=== PATIENT | male | born 1960 | race Caucasian/White ===

== ENCOUNTER 2023-12-06 21:03 | Emergency (ER) | payer BC, SELFPAY ==
[2023-12-06 21:12] VITALS: BP 198/97
--- NOTE | 2023-12-07 00:09 | ED.GENMED ---
History of Present Illness
General
Chief Complaint: Musculo-Skeletal Complaint
Source: patient
Exam Limitations: none
Time Seen by Provider: 12/06/23 22:54
Travel History
Have you had any contact with someone who has COVID-19?: No
Do you have any symptoms of coronavirus? Fever > 100 degrees, chills, cough, shortness of breath, sore throat, loss of taste or smell, muscle aches, or headache?: No
History of Present Illness
History of Present Illness:
This is a 63 year old male that comes in with c/o left hip pain. 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 States that the pain goes around to the low back and is on the top of the
hip. Denies any falls or injury. Denies any fever, chills, chest pain, SOB, abd pain, nausea, vomiting, diarrhea, headache, dizziness, urinary burning.
Past History
Past History
ED Past Medical History: GERD, NIDDM and Other (hernia's)
ED Past Surgical History: Appendectomy, Tonsilectomy (and adenoids) and Other (Sinus surgery)
Social History
Tobacco: Former smoker
Alcohol: Occasional
Personal:
Living: with family
Employment: Employed
Review of Systems
Review of Systems
All Other Systems: ROS reviewed and negative except as documented in HPI and ROS
Constitutional: Reports no symptoms; Denies fever or chills
EENT: Reports no symptoms
Respiratory: Reports no symptoms; Denies cough or trouble breathing
Cardiac: Reports no symptoms; Denies chest pain
ABD/GI: Reports no symptoms; Denies abdominal pain, nausea, vomiting or diarrhea
: Reports no symptoms; Denies dysuria, frequency or urgency
Musculoskeletal: Reports joint pain (Left hip pain)
Skin: Reports no symptoms
Neurological: Reports no symptoms; Denies dizzy or headache
Psychiatric: Reports no symptoms
Phy Exam
General Physical Exam
General Presentation: well appearing and no apparent distress
General age: appears stated age
General Skin: warm and dry
General Habitus: normal
General Mental: alert
General Hydration: appears well hydrated
ENT Exam
ENT Exam: TM's normal, pharynx normal and neck supple
Eye Exam
Eye Exam: EOMI
Cardiovascular Exam
Cardiovascular Exam: regular rate/rhythm, no murmur and normal peripheral pulses
Pulmonary Exam
Pulmonary Exam: lungs clear, no respiratory distress, no rales, chest non tender, no crackles, no rhonchi, no wheezing and no cough
Gastrointestinal Exam
Gastrointestinal Exam: normal bowel sounds, non tender, soft, no organomegaly, no pulsatile mass, non distended and other (Obese)
Musculoskeletal Exam
Musculoskeletal Exam: full ROM, no edema and other (Tenderness with palpation against the hip socket. patient able to bend leg)
Skin Exam
Skin Exam: normal color, warm/dry, no rash and no petechia
Psychiatric Exam
Psychiatric Exam: normal mood/affect
Course
Orders/Labs/Results
Orders:
Orders
12/06/23 21:10
Hip, Left 2-3 Views [CR Hip - LT w/wo Pel 2-3 Vw*] Urgent
Comment:
Reason For Exam: pain
Include a pelvis x-ray?: Yes
Vital Signs
Initial and Last Documented VS:
Initial Vital Signs
Temp Pulse Resp BP Pulse Ox
98.7 F 101 17 198/97 98
12/06/23 21:12 12/06/23 21:12 12/06/23 21:12 12/06/23 21:12 12/06/23 21:12
Last Documented Vital Signs
Temp Pulse Resp BP Pulse Ox
98.7 F 101 17 198/97 98
12/06/23 21:12 12/06/23 21:12 12/06/23 21:12 12/06/23 21:12 12/06/23 21:12
MDM/Problems Addressed
Differential Diagnosis Includes:
Degenerative changes left hip
MDM/Problems Addressed:
This is a 63 year old male that comes in with c/o left hip pain. States that this has been going on for the past 2 months.
Will get X-ray.
Back into see patient. Explained that the X-ray was negative for any fractures. However, there looks to be degenerative changes. Will have patient follow up with the podiatric foot and ankle specialist for further evaluation.Patient can use Ice to help with pain
and use Tylenol or Ibuprofen for pain.
Chronic conditions affecting care:
Obese
Acute Exacerbation and/or Progression of Chronic Illness:
NA
*Radiology
Radiology exam reviewed: preliminary read by ED provider (Left hip- Degenerative changes, Negative for fractures. )
*Pulse Oximetry
Patient hypoxic: no
*EKG
Interpreted by ED Provider?: NA
Rate: EKG- N/A
*Zinc Miner Blasting Interpretation
Rate: Zinc Miner Blasting- N/A
*Critical Care Note
Total Time (30-74mins, 75-104mins- exclusive of procedures): Not Applicable
ED Attending Note
-
Portions of this chart may have been created with voice recognition software.� Occasional wrong word or��sound alike� substitutions may have occurred due to the inherent limitations of voice recognition software.
Discharge Plan
Departure
Patient Disposition: Home (Routine Discharge)
Date of Disposition: 12/07/23
Time of Disposition: 00:25
Patient with high blood pressure during this ER visit?: Yes
Condition: Good
Covid-19: Not Applicable
Discharge Problem:
Hip pain, left
Instructions: Hip Pain (DC), BLOOD PRESSURE
Prescriptions:
No Action
gabapentin 300 mg capsule
300 mg PO BID Qty: 60 0RF
metformin 500 mg tablet
500 mg PO BID Qty: 60 0RF
lisinopril 10 mg tablet
10 mg PO DAILY Qty: 30 0RF
Referrals:
Isra Hickman MD [Active] - Follow up in 2-3 days
Andrae Deras DO [Family Provider] -
Activity Restrictions/Additional Instructions:
As discussed, your X-rays are negative for any fractures. There are degenerative changes in the hip. Please follow up with the podiatric foot and ankle specialist for further evaluation. You may use Ice to help with pain and Tylenol or Ibuprofen for pain. IF YOU
HAVE ANY OTHER CONCERNS PLEASE RETURN TO THE EMERGENCY ROOM.
Interventions
Interventions:
*Risk Screen - Suicide Last Done: 12/06/23 21:12
*General Assessment Last Done: 12/06/23 21:12
*Neglect/Abuse Screening Last Done: 12/06/23 21:12
ED-Musculoskeletal Assessment Last Done: 12/06/23 23:16
[2023-12-07 00:54] VITALS: BP 139/80
== END 2023-12-07 00:56 | disposition home or self-care (01) ==
LOC: EMR 21:03
PROVIDERS: EMERGENCY PHYSICIAN Emergency Medicine; FAMILY PHYSICIAN Family Medicine
DX: M25.552 Pain in left hip (principal); M54.50 Low back pain, unspecified; R03.0 Elevated blood-pressure reading, without diagnosis of hypertension; E66.9 Obesity, unspecified; E11.9 Type 2 diabetes mellitus without complications; K21.9 Gastro-esophageal reflux disease without esophagitis; Z79.84 Long term (current) use of oral hypoglycemic drugs; Z87.891 Personal history of nicotine dependence; Z88.1 Allergy status to other antibiotic agents
CPT/HCPCS: 99283; 73502

== ENCOUNTER 2025-08-27 02:46 | Inpatient (IN) | payer BC, SELFPAY ==
[2025-08-26 21:13] LABS: ALT (SGPT) 26 U/L (0-50); AST (SGOT) 19 U/L (17-59); Albumin 3.9 g/dl (3.5-5.0); Alkaline Phosphatase 125 U/L (38-126); Blood Urea Nitrogen 13 mg/dl (9-20); COVID-19 Antigen Negative (Negative); Calcium 8.3 mg/dl (8.4-10.2); Carbon Dioxide 30 mmol/L (22-30); Chloride 93 mmol/L (98-107); Potassium 4.4 mmol/L (3.5-5.1); Sodium 129 mmol/L (135-145); Total Protein 7.2 g/dl (6.3-8.2); eGFR > 60.00
[2025-08-26 21:14] LABS: Glucose 409 mg/dl (70-99)
[2025-08-26 22:07] VITALS: BP 129/68
[2025-08-26 22:08] VITALS: BMI 38.9
[2025-08-26 22:18] LABS: Hematocrit 39.1 % (39.0-52.0); Hemoglobin 13.3 g/dL (13.0-18.0); Mean Corp Hgb Conc. 34.0 g/dL (33.0-37.0); Mean Corpuscular Volume 80.5 fL (80.0-94.0); Nucleated Red Blood Cells % 0 % (-); Platelet Count 235 10^3/uL (130-400); Red Cell Dist. Width 13.2 % (11.5-14.5)
--- NOTE | 2025-08-26 22:39 | ED.GENMED ---
History of Present Illness
<Laila Lubin PA-C - Last Filed: 08/27/25 10:08>
General
Chief Complaint: Cough
Source: patient
Exam Limitations: none
Time Seen by Provider: 08/26/25 22:20
History of Present Illness
History of Present Illness:
65yoM with a history of type 2 diabetes not on medications (patient prefers to treat himself naturally), hypertension, obesity, and GERD presenting for evaluation of cough. Patient has been having issues with belching for the past year or so. The
symptoms worsened today and he felt like he was choking. He also started experiencing chills and decided to come to the ED. He reports some abdominal discomfort which he believes is from belching. He denies any vomiting or diarrhea. He is
febrile to 101.5 on arrival. No known sick contacts.
Past History
<Laila Lubin PA-C - Last Filed: 08/27/25 10:08>
Past History
ED Past Medical History: GERD, NIDDM and Other (hernia's)
ED Past Surgical History: Appendectomy, Tonsilectomy (and adenoids) and Other (Sinus surgery)
Social History
Tobacco: Former smoker
Alcohol: Occasional
Personal:
Living: with family
Employment: Employed
Phy Exam
<Laila Lubin PA-C - Last Filed: 08/27/25 10:08>
Physical Exam
Physical Exam:
Hiccuping/belching during exam
General Physical Exam
General Presentation: well appearing and no apparent distress
General Skin: warm and dry
General Habitus: normal and obese
General Mental: alert
Cardiovascular Exam
Cardiovascular Exam: regular rate/rhythm
Pulmonary Exam
Pulmonary Exam: no respiratory distress, no rales, no crackles, no rhonchi, no stridor, no wheezing and decreased breath sounds
Gastrointestinal Exam
Gastrointestinal Exam: non tender, soft and non distended
Neurological Exam
Neurological Exam: alert
Sejal Coma Scale
Eye Opening: Spontaneous
Verbal Response: Oriented
Motor Response: Obeys Commands
GCS Total Score: 15
Skin Exam
Skin Exam: normal color and warm/dry
Psychiatric Exam
Psychiatric Exam: normal mood/affect
Sepsis
<Laila Lubin PA-C - Last Filed: 08/27/25 10:08>
Sepsis Screening
Sepsis Assessment: Sepsis
Sepsis Screen
Sepsis Screen: Sepsis
Date: 08/27/25
Time: 10:06
Course
<Laila Lubin PA-C - Last Filed: 08/27/25 10:08>
Orders/Labs/Results
Orders:
Orders
08/26/25 20:27
EKG [Electrocardiogram (*1)] Urgent
Reason for Study: Tachycardia
EKG- Treatment ONCE
08/26/25 20:49
CMP [Comprehensive Metabolic Panel] Urgent
COVID-19 Antigen Urgent
Source: Nasal Swab
Influenza A+B Rapid Molecular Urgent
[facility] Source: Nasal Swab
Specimen Description:
08/26/25 22:06
CBC/With Diff [Complete Blood Count/With Diff] Urgent
Lactic Acid Q4H
Comment: ON ICE, CANCEL 2ND ORDER IF FIRST LACTIC ACID LEVEL <2
Blood Culture Q20M
[facility] Source: Blood/Venous
Specimen Description:
Comment: Urgent from separate sites. If patient screens positive for possible sepsis
Blood Culture Q20M
[facility] Source: Blood/Venous
Specimen Description:
Comment: Urgent from separate sites. If patient screens positive for possible sepsis
08/26/25 22:33
CT Abd/pelvis W Iv Cont Urgent
Comment:
Reason For Exam: abd pain, belching, fever
0.9% Sodium Chloride 1000 ml [Nss] 1,000 ml IV BOLUS
08/26/25 22:51
CT Chest W/o Iv Contrast Urgent
Comment:
Reason For Exam: Cough, fever
08/26/25 23:08
Urinalysis Reflex To Culture Urgent
Date Specimen was Collected: 08/26/25
Time Specimen was Collected: 20:28
Urine Microscopic Reflex Cult Urgent
08/26/25 23:54
LevoFLOXacin 750 MG/150 ML [Levaquin] 750 mg in 150 ml IV NOW
08/27/25 02:08
Bedside Glucose Monitoring-ONCE As Directed
08/27/25 02:09
Admit/Transfer Patient As Directed
Co-Sign Provider:
Level of Care: Inpatient admission
Assign to:: Medical/Surgical
Physician / Group: [facility]
Diagnosis: RLL Pneumonia
Reason for Hospitalization: Pneumonia
Expected length of stay greater than two midnights?: Yes
ELOS- Estimated Length of Stay in days: 2
I certify the patient meets the requirements for IP care: Yes
Code Status As Directed
Resuscitation Status: Full Code
PRN Pain Medication Management As Directed
May give lesser potent ordered pain med per pt: Yes
preference::
Protocol:: Medication orders for pain may be administered in a
manner that supports deferring to patient preference
when the pt is:
- Requesting an ordered lesser potent pain medication.
Least to most potent pain medications are defined
as: acetaminophen < NSAID < tramadol < opioids
(morphine, oxycodone, hydromorphone).
- Requesting a lesser dose of the same medication IF
ORDERED.
- Requesting a less intrusive route of administration
if both routes are prescribed by the provider (PO <
IV).
08/27/25 02:50
0.9% Sodium Chloride 1000 ml [Nss] 1,000 ml IV 125 mls/hr
Acetaminophen [Tylenol] 650 mg PO Q4HPRN PRN
Dextrose 50%-Water [Dextrose 50% Syringe] 12.5 grams IV [id number] PRN
Glucagon [GlucaGen] 1 mg IM PRN PRN
Ipratropium/Albuterol Sulfate [Duoneb] 3 ml INH R Q4HPRN PRN
Magnesium Hydroxide [Milk of Magnesia] 30 ml PO Q4HPRN PRN
Metoclopramide [Reglan] 10 mg IV Q6HPRN PRN
08/27/25 02:50
Legionella Urinary Antigen Routine
[facility] Source: Urine
Specimen Description:
Respiratory Culture/Gram Stain Urgent
[facility] Source: Sputum
Specimen Description:
Strep pneumoniae Antigen Routine
[facility] Source: Urine
Specimen Description:
Activity As Directed
Activity Level: Out of Bed-Early Mobility
Bedside Glucose Monitoring As Directed
Frequency: AC&HS
Additional Instructions:: Change to q6h if pt on TPN, tube feeding or not eating
Intake/ Output As Directed
Frequency: Per unit guidelines
Vital Signs As Directed
Frequency: Per unit guidelines
Weight As Directed
Frequency: Once
Comment: on admission
Pulse Ox/cont/shift [RESP] Routine
Quantity: 1
Special Instructions: notify provider if SPO2 < 91%
Rx Incentive Spirometry [RESP] Routine
Frequency: q1h while awake
DX Deep Vein Thrombosis Video Routine
08/27/25 05:19
Basic Metabolic Panel IN AM
Complete Blood Count/No Diff IN AM
Glycohemoglobin (HgbA1c) IN AM
08/27/25 Breakfast
1800 calorie (15 carb) Diabetic
At Your Request: Full Participation
08/27/25 07:30
Insulin Aspart Corrective Mod [Novolog Flexpen-Moderate Resistance] See Protocol SC AC
08/27/25 08:00
Gabapentin [Neurontin] 300 mg PO BID
GlipiZIDE [Glucotrol] 2.5 mg PO BID@0800,1700
Guaifenesin [Mucinex] 600 mg PO Q12
Pantoprazole [Protonix] 40 mg PO DAILY
Sitagliptin Phosphate [Januvia] 50 mg PO DAILY
08/27/25 18:00
Enoxaparin Sodium [Lovenox] 40 mg SC QPM
08/27/25 23:30
LevoFLOXacin 750 MG/150 ML [Levaquin] 750 mg in 150 ml IV Q24H
Abnormal Lab Results
08/26/25 08/26/25 08/26/25
20:49 22:06 23:08
WBC 16.5 H 10^3/uL
(4.8-10.8)
MPV 11.2 H fL
(7.4-10.4)
Abs Immat Gran (auto) 0.1 H 10^3/uL
(0-0.05)
Absolute Neuts (auto) 13.2 H 10^3/uL
(1.4-6.5)
Absolute Monos (auto) 1.0 H 10^3/uL
(0.1-0.6)
Immature Gran % 0.8 H %
(0-0.5)
Neutrophils % 79.6 H %
(42.2-75.2)
Lymphocytes % 12.2 L %
(20.5-51.1)
Sodium 129 L mmol/L
(135-145)
Chloride 93 L mmol/L
(98-107)
Glucose 409 H mg/dl
(70-99)
Calcium 8.3 L mg/dl
(8.4-10.2)
Total Bilirubin 1.8 H mg/dl
(0.2-1.3)
Urine Ketones 2+ A
(Negative)
Urine Bacteria (Reflex) Few A
(Negative)
Urine Glucose 4+ A
(Negative)
Urine Albumin (Reflex) 2+ A
(Neg - Trace)
POC Glucose
08/27/25
02:12
WBC
MPV
Abs Immat Gran (auto)
Absolute Neuts (auto)
Absolute Monos (auto)
Immature Gran %
Neutrophils %
Lymphocytes %
Sodium
Chloride
Glucose
Calcium
Total Bilirubin
Urine Ketones
Urine Bacteria (Reflex)
Urine Glucose
Urine Albumin (Reflex)
POC Glucose 338 H mg/dl
(70-99)
08/26/25 22:06
08/26/25 20:49
Vital Signs
Initial and Last Documented VS:
Initial Vital Signs
Temp Pulse Resp Pulse Ox
101.5 F H 102 20 94
08/26/25 20:29 08/26/25 20:29 08/26/25 20:29 08/26/25 20:29
Last Documented Vital Signs
Temp Pulse Resp BP Pulse Ox
99.8 F 90 18 146/64 97
08/27/25 08:02 08/27/25 05:17 08/27/25 05:17 08/27/25 08:02 08/27/25 07:53
<Shelton Maki, DO - Last Filed: 08/27/25 00:12>
Orders/Labs/Results
Orders:
Orders
08/26/25 20:27
EKG [Electrocardiogram (*1)] Urgent
Reason for Study: Tachycardia
EKG- Treatment ONCE
08/26/25 20:49
CMP [Comprehensive Metabolic Panel] Urgent
COVID-19 Antigen Urgent
Source: Nasal Swab
Influenza A+B Rapid Molecular Urgent
[facility] Source: Nasal Swab
Specimen Description:
08/26/25 22:06
CBC/With Diff [Complete Blood Count/With Diff] Urgent
Lactic Acid Q4H
Comment: ON ICE, CANCEL 2ND ORDER IF FIRST LACTIC ACID LEVEL <2
Blood Culture Q20M
[facility] Source: Blood/Venous
Specimen Description:
Comment: Urgent from separate sites. If patient screens positive for possible sepsis
Blood Culture Q20M
[facility] Source: Blood/Venous
Specimen Description:
Comment: Urgent from separate sites. If patient screens positive for possible sepsis
08/26/25 22:33
CT Abd/pelvis W Iv Cont Urgent
Comment:
Reason For Exam: abd pain, belching, fever
0.9% Sodium Chloride 1000 ml [Nss] 1,000 ml IV BOLUS
08/26/25 22:51
CT Chest W/o Iv Contrast Urgent
Comment:
Reason For Exam: Cough, fever
08/26/25 23:08
Urinalysis Reflex To Culture Urgent
Date Specimen was Collected: 08/26/25
Time Specimen was Collected: 20:28
Urine Microscopic Reflex Cult Urgent
08/26/25 23:54
LevoFLOXacin 750 MG/150 ML [Levaquin] 750 mg in 150 ml IV NOW
08/27/25 02:08
Bedside Glucose Monitoring-ONCE As Directed
08/27/25 02:09
Admit/Transfer Patient As Directed
Co-Sign Provider:
Level of Care: Inpatient admission
Assign to:: Medical/Surgical
Physician / Group: [facility]
Diagnosis: RLL Pneumonia
Reason for Hospitalization: Pneumonia
Expected length of stay greater than two midnights?: Yes
ELOS- Estimated Length of Stay in days: 2
I certify the patient meets the requirements for IP care: Yes
Code Status As Directed
Resuscitation Status: Full Code
PRN Pain Medication Management As Directed
May give lesser potent ordered pain med per pt: Yes
preference::
Protocol:: Medication orders for pain may be administered in a
manner that supports deferring to patient preference
when the pt is:
- Requesting an ordered lesser potent pain medication.
Least to most potent pain medications are defined
as: acetaminophen < NSAID < tramadol < opioids
(morphine, oxycodone, hydromorphone).
- Requesting a lesser dose of the same medication IF
ORDERED.
- Requesting a less intrusive route of administration
if both routes are prescribed by the provider (PO <
IV).
08/27/25 02:50
0.9% Sodium Chloride 1000 ml [Nss] 1,000 ml IV 125 mls/hr
Acetaminophen [Tylenol] 650 mg PO Q4HPRN PRN
Dextrose 50%-Water [Dextrose 50% Syringe] 12.5 grams IV [id number] PRN
Glucagon [GlucaGen] 1 mg IM PRN PRN
Ipratropium/Albuterol Sulfate [Duoneb] 3 ml INH R Q4HPRN PRN
Magnesium Hydroxide [Milk of Magnesia] 30 ml PO Q4HPRN PRN
Metoclopramide [Reglan] 10 mg IV Q6HPRN PRN
08/27/25 02:50
Legionella Urinary Antigen Routine
[facility] Source: Urine
Specimen Description:
Respiratory Culture/Gram Stain Urgent
[facility] Source: Sputum
Specimen Description:
Strep pneumoniae Antigen Routine
[facility] Source: Urine
Specimen Description:
Activity As Directed
Activity Level: Out of Bed-Early Mobility
Bedside Glucose Monitoring As Directed
Frequency: AC&HS
Additional Instructions:: Change to q6h if pt on TPN, tube feeding or not eating
Intake/ Output As Directed
Frequency: Per unit guidelines
Vital Signs As Directed
Frequency: Per unit guidelines
Weight As Directed
Frequency: Once
Comment: on admission
Pulse Ox/cont/shift [RESP] Routine
Quantity: 1
Special Instructions: notify provider if SPO2 < 91%
Rx Incentive Spirometry [RESP] Routine
Frequency: q1h while awake
DX Deep Vein Thrombosis Video Routine
08/27/25 05:19
Basic Metabolic Panel IN AM
Complete Blood Count/No Diff IN AM
Glycohemoglobin (HgbA1c) IN AM
08/27/25 Breakfast
1800 calorie (15 carb) Diabetic
At Your Request: Full Participation
08/27/25 07:30
Insulin Aspart Corrective Mod [Novolog Flexpen-Moderate Resistance] See Protocol SC AC
08/27/25 08:00
Gabapentin [Neurontin] 300 mg PO BID
GlipiZIDE [Glucotrol] 2.5 mg PO BID@0800,1700
Guaifenesin [Mucinex] 600 mg PO Q12
Pantoprazole [Protonix] 40 mg PO DAILY
Sitagliptin Phosphate [Januvia] 50 mg PO DAILY
08/27/25 18:00
Enoxaparin Sodium [Lovenox] 40 mg SC QPM
08/27/25 23:30
LevoFLOXacin 750 MG/150 ML [Levaquin] 750 mg in 150 ml IV Q24H
Abnormal Lab Results
08/26/25 08/26/25 08/26/25
20:49 22:06 23:08
WBC 16.5 H 10^3/uL
(4.8-10.8)
MPV 11.2 H fL
(7.4-10.4)
Abs Immat Gran (auto) 0.1 H 10^3/uL
(0-0.05)
Absolute Neuts (auto) 13.2 H 10^3/uL
(1.4-6.5)
Absolute Monos (auto) 1.0 H 10^3/uL
(0.1-0.6)
Immature Gran % 0.8 H %
(0-0.5)
Neutrophils % 79.6 H %
(42.2-75.2)
Lymphocytes % 12.2 L %
(20.5-51.1)
Sodium 129 L mmol/L
(135-145)
Chloride 93 L mmol/L
(98-107)
Glucose 409 H mg/dl
(70-99)
Calcium 8.3 L mg/dl
(8.4-10.2)
Total Bilirubin 1.8 H mg/dl
(0.2-1.3)
Urine Ketones 2+ A
(Negative)
Urine Bacteria (Reflex) Few A
(Negative)
Urine Glucose 4+ A
(Negative)
Urine Albumin (Reflex) 2+ A
(Neg - Trace)
POC Glucose
08/27/25
02:12
WBC
MPV
Abs Immat Gran (auto)
Absolute Neuts (auto)
Absolute Monos (auto)
Immature Gran %
Neutrophils %
Lymphocytes %
Sodium
Chloride
Glucose
Calcium
Total Bilirubin
Urine Ketones
Urine Bacteria (Reflex)
Urine Glucose
Urine Albumin (Reflex)
POC Glucose 338 H mg/dl
(70-99)
08/26/25 22:06
08/26/25 20:49
Vital Signs
Initial and Last Documented VS:
Initial Vital Signs
Temp Pulse Resp Pulse Ox
101.5 F H 102 20 94
08/26/25 20:29 08/26/25 20:29 08/26/25 20:29 08/26/25 20:29
Last Documented Vital Signs
Temp Pulse Resp BP Pulse Ox
99.8 F 90 18 146/64 97
08/27/25 08:02 08/27/25 05:17 08/27/25 05:17 08/27/25 08:02 08/27/25 07:53
<Laila Lubin PA-C - Last Filed: 08/27/25 10:08>
MDM/Problems Addressed
Differential Diagnosis Includes:
65yoM here with belching and feeling like he is choking. Also developed chills today. Temp 101.5 on arrival. He is belching during exam. Hx of diabetes but patient not on medications by choice. Differential diagnosis includes but is not limited to:
gastritis, GERD, achalasia, gastroparesis, pneumonia, viral illness
Initial ED plan: Workup initiated in triage. White count 16.5. Lactate WNL. Glucose 409. Bicarb normal. Sodium 129 which corrects to 134 for glucose. COVID/flu testing negative. Will check UA, CT abdomen, and CXR. IV fluid bolus.
<Laila Lubin PA-C - Last Filed: 08/27/25 10:08>
*Pulse Oximetry
SaO2: 94
Oxygen Mode of Delivery: Room air
Patient hypoxic: no
*Critical Care Note
Total Time (30-74mins, 75-104mins- exclusive of procedures): Not Applicable
<Laila Lubin PA-C - Last Filed: 08/27/25 10:08>
Update Note
Update Note:
Imaging shows severe RLL pneumonia. IV Levaquin ordered (history of cephalosporin allergy) and patient admitted for further management.
ED Attending Note
<Laila Lubin PA-C - Last Filed: 08/27/25 10:08>
-
Portions of this chart may have been created with voice recognition software.� Occasional wrong word or��sound alike� substitutions may have occurred due to the inherent limitations of voice recognition software.
<Shelton Maki DO - Last Filed: 08/27/25 00:12>
ED Attending Note
Patient seen and examined by attending physician: Yes
I performed the substantive portion of visit, reviewed & personally made and approve the management plan that is documented in note by myself or SEEMA.: Yes
ED Attending Note:
65-year-old male presents with cough chills burping and the feeling that he can get phlegm out of his throat.
-
Portions of this chart may have been created with voice recognition software.� Occasional wrong word or��sound alike� substitutions may have occurred due to the inherent limitations of voice recognition software. Patient states that the symptoms
have been progressively worsening. CT scan of the chest shows severe right lower lobe pneumonia. Patient was seen in conjunction with the PA. I reviewed and agree with her history and treatment plan. On my independent physical exam patient awake
alert and oriented. Coughing a nonproductive cough. Trying to expectorate. He also has burping. He is in no respiratory distress. Plan start antibiotics and admit to the hospitalist service
Discharge Plan
Departure
Patient Disposition: Admit
Date of Disposition: 08/26/25
Time of Disposition: 23:56
Presentation/result/management discussed w/ accepting MD/DO: Hospitalist
Discharge Problem:
Right lower lobe pneumonia, Sepsis
Interventions
Interventions:
*Risk Screen - Suicide Last Done: 08/26/25 20:29
*General Assessment Last Done: 08/26/25 20:29
*Neglect/Abuse Screening Last Done: 08/26/25 20:29
*ED- Fall Risk Assessment Last Done: 08/26/25 20:29
*ED COVID-19 Vaccine History Last Done: 08/26/25 20:29
*ED Influenza Vaccine History Last Done: 08/26/25 20:29
ED- Pulmonary Assessment Last Done: 08/26/25 22:10
[2025-08-26] MEDS: NSS 1000 IV (23:10)
[2025-08-26 23:14] LABS: Urine Character Clear (Clear)
[2025-08-26 23:23] LABS: Urine Red Blood Cell 0-2 /HPF (0-2); Urine White Cell 0-2 /HPF (0-5)
[2025-08-27] VITALS (8 sets, daily range): BP systolic 132–158; BP diastolic 64–85; BMI 39.0
[2025-08-27] MEDS: LEVAQUIN 150 IV (00:14)
--- NOTE | 2025-08-27 01:50 | HPS.HSE ---
Family Physician
-
Family Physician: Andrae Deras
Chief Complaint
-
Cough
History of Present Illness
Patient is a 65-year-old with past medical history significant for [id number] diabetes, hypertension, GERD, presents to the emergency department for evaluation of cough that has been going on for some time.
Patient reported that he started having some difficulty with breathing. He felt like he was choking and the only way to resolve it was to belch. Reports that he feels some congestion in his chest that he could not clear. He denies having any
chest pain. He denies having any trouble swallowing. He does not choke when he does eat or drink. He reported having chills and decided come to the emergency department. He has not vomited. He reports some abdominal discomfort. He denies any
known sick contacts. He denies feeling short of breath. He denies having any chest pain. He denies any diaphoresis. Denies any recent travels or antibiotic use.
Patient has not been taking any medications for his diabetes due to fear of needles. He also declined oral medications as stated that they are not effective. He is willing to try oral medications at this time. He denies polyuria or polydipsia.
Emergency Department patient was febrile to 101.5, blood pressure was 158/72 with a pulse of 96 and satting 94% on room air. Imaging with chest x-ray as well as CT of the chest abdomen pelvis shows large right lower lobe pneumonia, severe diffuse
hepatic steatosis and mild splenomegaly. CBC shows a white count of 16.5 with a normal hemoglobin and platelets. Sodium was 129 otherwise electrolytes BUN/creatinine were normal blood glucose was elevated to 409. ECG shows normal sinus rhythm at
a rate of 98 with lateral T wave inversion.
Medical History
Past Medical History
Past Medical History: Reports GERD, HTN and NIDDM
Past Surgical History: Reports Appendectomy and Tonsilectomy
Social History
Tobacco: Former Smoker
Alcohol: Occasional
Drug: None
Family History
Family History: Not pertinent
Allergies / Home Medications
Allergies reflects when Allergies were last updated in [facility] [employer].
Home Medications with original date entered in [facility]
Allergy/Medication List:
Allergies
Allergy/AdvReac Type Severity Reaction Status Date / Time
cefuroxime (From Ceftin) Allergy 'created a Verified 12/03/23 00:48
serum
infection'
Home Medications
gabapentin 300 mg capsule 300 mg PO BID #60 caps 07/27/23
esomeprazole magnesium 20 mg capsule,delayed release (Nexium) 20 mg PO DAILY 08/26/25
Review of Systems
-
Constitutional: Reports No Symptoms
EENT: Reports No Symptoms
Respiratory: Reports Cough
Cardiac: Reports No Symptoms
Abdomen/GI: Reports Nausea
: Reports No Symptoms
Musculoskeletal: Reports No Symptoms
Skin: Reports No Symptoms
Neurological: Reports No Symptoms
Endocrine: Reports No Symptoms
Hematologic/Lymphatic: Reports No Symptoms
Psych: Reports No Symptoms
Physical Exam
Vital Signs
Vital Signs
Temp Pulse Resp BP Pulse Ox
100.6 F H 91 18 158/72 94
08/26/25 22:14 08/27/25 01:00 08/27/25 01:00 08/27/25 01:00 08/26/25 22:39
Physical Exam
General: Well Developed, Well Nourished and No Apparent Distress
HEENT: NormoCephalic, Moist mucous membranes and Atraumatic
Respiratory: Clear and Crackles; No Wheezes
Cardiac: S1/S2 and Regular Rhythm; No Murmur or Rub
GI: Soft, Non Tender, Non Distended and Normal Bowel Sounds; No Organomegaly
Rectal: Deferred by Provider
Musculoskeletal: No Clubbing, No Cyanosis and No Edema
Skin: No Rash
Neuro: AO x 3 and Nonfocal/grossly intact
Laboratory Results
-
08/26/25 22:06
08/26/25 20:49
Laboratory Results
Lactic Acid 1.3 mmol/L (0.7-2.0) 08/26/25 22:06
Total Bilirubin 1.8 mg/dl (0.2-1.3) H 08/26/25 20:49
AST 19 U/L (17-59) 08/26/25 20:49
ALT 26 U/L (0-50) 08/26/25 20:49
Alkaline Phosphatase 125 U/L (38-126) 08/26/25 20:49
Data Reviewed
-
CT Scan: Report Reviewed by me
Medical Tests (Nuc Med, Echo, EKG etc): Image Personally Visualized and interpreted
Lab Data: Labs Reviewed by me
Old Records: Reviewed
Impression/Plan
-
IMPRESSION:
65-year-old with cough chills and fever found to have a right lower lobe pneumonia
PLAN:
Right lower lobe pneumonia -
-Admit to [facility]
-Blood cultures
-Sputum culture
-Negative COVID and influenza testing
-Urine Legionella and streptococcal antigen
-IV Levaquin started, will continue for now(h/o reaction to ceftin/cephalosporin)
-As needed nebs, antitussives and antiemetics
-Gentle hydration overnight
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 Claims knowledge of ineffective oral medications
-Will give IV fluids NS at 125 ml/hr for now
- sliding scale insulin for now
- Check A1c in a.m.
�sodium correction to 135
- If A1c < 10 then start glipizide and januvia, start metformin 48 hours after contrast dose, otheriwise will need insulin and diabetes nurse management
DVT prophylaxis�lovenox sq
Code status - Full Code
[2025-08-27 02:13] LABS: Glucose - Point of Care 338 mg/dl (70-99)
[2025-08-27] MEDS: NSS 1000 IV ×2 (05:21→14:55)
[2025-08-27 05:48] LABS: Hematocrit 39.9 % (39.0-52.0); Hemoglobin 13.4 g/dL (13.0-18.0); Mean Corp Hgb Conc. 33.6 g/dL (33.0-37.0); Mean Corpuscular Volume 81.3 fL (80.0-94.0); Platelet Count 225 10^3/uL (130-400); Red Cell Dist. Width 13.2 % (11.5-14.5)
[2025-08-27 06:03] LABS: Blood Urea Nitrogen 11 mg/dl (9-20); Calcium 8.2 mg/dl (8.4-10.2); Carbon Dioxide 30 mmol/L (22-30); Chloride 95 mmol/L (98-107); Estimated Creatinine Clearance > 125 ml/min; Glucose 326 mg/dl (70-99); Potassium 4.3 mmol/L (3.5-5.1); Sodium 130 mmol/L (135-145); eGFR > 60.00
[2025-08-27 07:42] LABS: Glucose - Point of Care 332 mg/dl (70-99)
[2025-08-27] MEDS: TYLENOL 650 MG PO ×2 (07:42→15:21)
[2025-08-27] MEDS: PROTONIX 40 MG PO (07:42)
[2025-08-27] MEDS: GLUCOTROL 2.5 MG PO (07:42)
[2025-08-27] MEDS: MUCINEX 600 MG PO ×2 (07:42→20:45)
[2025-08-27] MEDS: NEURONTIN 300 MG PO ×2 (07:45→20:45)
[2025-08-27] MEDS: JANUVIA 50 MG PO (09:30)
[2025-08-27] MEDS: NOVOLOG FLEXPEN-MODERATE RESISTANCE 7 UNITS SC (09:30)
[2025-08-27 10:25] LABS: Glycohemoglobin (HgbA1c) 13.2 % (4.0-5.9)
[2025-08-27 12:23] LABS: Glucose - Point of Care 194 mg/dl (70-99)
[2025-08-27] MEDS: NSS IV (13:16)
[2025-08-27] MEDS: NOVOLOG FLEXPEN-MODERATE RESISTANCE 1 UNITS SC (13:16)
--- NOTE | 2025-08-27 14:17 | CM ---
Chart reviewed and spoke with patient and dtr Nancy at ED bedside
Pt is and lives alone in a mobile home with ramp access
Still working wholesale and retail merchant and drives
no DME
PCP Dr. Daniel retired
Offered a list of PCPs but he wants to research on his own
CM encouraged him to find PCP YONATAN and patient agrees with plan
Dtr Nancy is willing to assist
RX plan yes
Pharmacy [facility] in [place]
no h of VN no hx of SNF
DCP home
Dtr can provide transportation at [place]
CM will follow up for any dcp needs
--- NOTE | 2025-08-27 14:23 | PN.DE.MGMTRT ---
Insulin Management
- -
08/27/2025: Diabetes Management Consult
65 year old male with PMH: T2DM, HTN, and GERD, who presents to the ED for evaluation of cough that has been going on for some time.
Patient reported that he started having some difficulty with breathing. He felt like he was choking and the only way to resolve it was to belch. Reports that he feels some congestion in his chest that he could not clear. He denies having any chest
pain. He denies having any trouble swallowing. He reported having chills which prompted his visit to the ED.
Pt awake, alert, oriented, resting in bed, offers no complaints, able to discuss diabetes care plan.
States he took Metformin in the past but stopped taking it because it wasn't working and that one of his friends said to him 'that stuff is not good for you'.
States he has a glucose monitor- OneTouch but doesn't test his blood sugars. He was recommended to start taking insulin but could not bring himself to take it because of fear of needles and that he watched his struggle with diabetes for years
and eventually from diabetes related complications.
Spoke to pt's Dtr Nancy who confirmed above details. Glucose on admission was 409, A1C is 13.2%, Cr 0.7, eGFR >60
Discussed with pt current A1C of 13.4 and explained implications of uncontrolled blood glucose and increased risk of acute and chronic diabetes related complications.
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
After a lengthy discussion, pt was agreeable to try combination of long acting insulin and oral medications at this time.
Will start Lantus 15 units @ HS, 1st dose tonight. Start Glipizide 5mg BID and Metformin 500mg BID.
Pt has a glucose monitor at home, will send rx for OneTouch meter supplies.
Discussed with Nurse. Will cont to follow
Diabetes History
- -
Type of Diabetes: 2 requiring insulin
Pre-Admission Diabetes Regimen
08/26/25 08/27/25
20:49 05:19
Creatinine 0.7 0.7
Lab Results
Hemoglobin A1c 13.2 % (4.0-5.9) H 08/27/25 05:19
Insulin Pump Settings
IP Diabetes Regimen
08/26/25 08/27/25 08/27/25
20:49 02:12 05:19
Glucose 409 H 326 H
POC Glucose 338 H
08/27/25 08/27/25
07:41 12:21
Glucose
POC Glucose 332 H 194 H
Patient Education
--- NOTE | 2025-08-27 15:44 | W.PN.HOSP.TC ---
Addendum entered and electronically signed by Mariely Simpson MD 08/27/25 17:48:
I saw and evaluated the patient independently. I reviewed and discussed the resident�s note and agree with findings and plan as documented by Dr. Deshpande.
GENERAL: well developed, well nourished, obese male in no apparent distress
HEENT: NC/AT
HEART: regular rate and rhythm, +S1, +S2
LUNGS : rhonchi right base
ABDOM: soft, nontender, nondistended, + bowel sounds
EXT: no cyanosis, clubbing, or edema
Right lower lobe pneumonia suspected to be community acquired --cont levaquin--change to oral form--await cultures- Negative covid, flu, legionella, and streptococcal antigen on urine testing- As needed acapella, nebs, antitussives and
antiemetics--follow WBC count
Elevated total bilirubin with normal LFT's most likely due to hepatic steatosis-- Direct bilirubin is 1.8- Patient is obese. Patient has no icteric sclera, abdominal pain or discomfort on physical exam- Abdominal CT shows severe diffuse hepatic
steatosis- Encouraged exercise and a diabetic diet
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
GERD- continue esomeprazole
Hyponatremia- CORRECTED level is 137, in the normal range. This is not true hyponatremia.
DVT proph-- Lovenox
Full code
Original Note:
Today's Communication/Plan
-
- await results of cultures
Assessment / Plan
Assessment / Plan
Right lower lobe pneumonia suspected to be community acquired pneumonia:
- confirmed on xray of the lungs which shows a right lower lobe consolidation. patient had symptoms of chills and cough with a fever of 100.6 on admission.
- Blood cultures and Sputum culture pending
- Negative covid, flu, legionella, and streptococcal antigen on urine testing
- continue IV Levaquin (h/o reaction to ceftin/cephalosporin)
- As needed acapella, nebs, antitussives and antiemetics
- continue on 1800 olivia diabetic diet
- Will dc fluids as patient is euvolemic
Reactive leucocytosis secondary to right lower lobe pneumonia:
- 13.5 today from 16.5 and trending down
- there is no fever today or chills.
- Observe
Elevated total bilirubin with normal LFT's most likely due to hepatic steatosis:
- Direct bilirubin is 1.8
- Patient is obese. Patient has no icteric sclera, abdominal pain or discomfort on physical exam.
- Abdominal CT shows severe diffuse hepatic steatosis
- Encouraged exercise and a diabetic diet
Insulin dependant diabetes mellitus
Suspected gastroparesis
Diabetic peripheral neuropathy b/l lower extremities:
- Patient does not like to take insulin as he is afraid of the subcutaneous injections and feels like oral meds do not work
- His hba1 is 13.2 and glucose is 409, UA shows 4+ glucose and 2+ ketones in urine, so blood sugar is uncontrolled due to lack of medication
- sliding scale insulin for now
- Diabetes nurse management is consulted
- ordered low dose 5 mg Reglan for patients suspected belching due to gastroparesis. Has had belching for 1 year not relieved on taking a PPI.
- continue gabapentin 300 mg po tid for the neuropathic pain
GERD:
- continue esomeprazole
Hyponatremia:
- CORRECTED level is 137, in the normal range. This is not true hyponatremia.
DVT ppx: Lovenox
Full code
Anticipated Discharge: 24 - 48 hours
Subjective/Interval History
-
Date of Service: August 27, 2025
No acute overnight events.
On ros he is positive for a dry cough ,chest congestion, and belching. No fever, chills, nausea, abdominal pain, dry mouth, weight loss, excessive urination, headache, visual changes, shortness of breath, dyspnea.
Objective Data
-
Labs:
Laboratory Results
08/27/25
05:19
WBC 13.5 H
Hgb 13.4
Hct 39.9
Plt Count 225
Sodium 130 L
Potassium 4.3
Chloride 95 L
Carbon Dioxide 30
BUN 11
Creatinine 0.7
Glucose 326 H
Calcium 8.2 L
Vital Signs:
Vital Signs
Temp Pulse Resp BP Pulse Ox
98.9 F 92 22 132/66 97
08/27/25 12:29 08/27/25 12:29 08/27/25 12:29 08/27/25 12:29 08/27/25 07:53
Review of Systems
-
History Source: Patient
All other systems: Reviewed and negative
Physical Exam
-
General: Well Developed
Respiratory: Crackles (right lower lung base)
Cardiac: Regular Rhythm and S1/S2
GI: Soft, Nontender, Nondistended and Normal Bowel Sounds
Musculoskeletal: No Clubbing, No Cyanosis and No Edema
Skin: Warm and Dry
Neuro: AO x 3
Psych: Calm
Data Reviewed
-
Diagnostic Radiology: Report Reviewed by me and Discussed with Physician
Labs: Labs Reviewed by me and Discussed with Physician
[2025-08-27 17:13] LABS: Glucose - Point of Care 232 mg/dl (70-99)
[2025-08-27] MEDS: REGLAN 5 MG PO (17:23)
[2025-08-27] MEDS: GLUCOTROL 5 MG PO (17:23)
[2025-08-27] MEDS: GLUCOPHAGE 500 MG PO (17:23)
[2025-08-27] MEDS: LOVENOX 40 MG SC (17:23)
[2025-08-27] MEDS: NOVOLOG FLEXPEN-MODERATE RESISTANCE 3 UNITS SC (17:24)
[2025-08-27 20:52] LABS: Glucose - Point of Care 297 mg/dl (70-99)
[2025-08-27] MEDS: LANTUS 0.15 UNITS SC (21:29)
[2025-08-27] MEDS: LEVAQUIN 750 MG PO (21:29)
--- NOTE | 2025-08-27 22:31 | PTCARENOTE ---
pt arrived via stretcher and ambulated to bedside. Bed set in lowest position, call mccormack within reach, side rails up. Will continue plan of care.
[2025-08-28] MEDS: LYRICA 150 MG PO (01:52)
[2025-08-28] MEDS: NSS 1000 IV ×2 (01:53→10:00)
[2025-08-28 03:04] LABS: Glucose - Point of Care 285 mg/dl (70-99)
[2025-08-28 07:22] VITALS: BP 163/93
[2025-08-28 07:50] LABS: Glucose - Point of Care 216 mg/dl (70-99)
[2025-08-28 07:51] LABS: Hematocrit 38.3 % (39.0-52.0); Hemoglobin 12.7 g/dL (13.0-18.0); Mean Corp Hgb Conc. 33.2 g/dL (33.0-37.0); Mean Corpuscular Volume 82.0 fL (80.0-94.0); Nucleated Red Blood Cells % 0 % (-); Platelet Count 232 10^3/uL (130-400); Red Cell Dist. Width 13.2 % (11.5-14.5)
[2025-08-28 08:22] LABS: ALT (SGPT) 18 U/L (0-50); AST (SGOT) 16 U/L (17-59); Albumin 3.2 g/dl (3.5-5.0); Alkaline Phosphatase 99 U/L (38-126); Blood Urea Nitrogen 10 mg/dl (9-20); Calcium 8.0 mg/dl (8.4-10.2); Carbon Dioxide 29 mmol/L (22-30); Chloride 99 mmol/L (98-107); Estimated Creatinine Clearance > 125 ml/min; Glucose 207 mg/dl (70-99); Magnesium 2.0 mg/dl (1.6-2.3); Potassium 3.9 mmol/L (3.5-5.1); Sodium 131 mmol/L (135-145); Total Protein 6.4 g/dl (6.3-8.2); eGFR > 60.00
[2025-08-28] MEDS: TYLENOL 650 MG PO (09:54)
[2025-08-28] MEDS: MUCINEX 600 MG PO (09:55)
[2025-08-28] MEDS: PROTONIX 40 MG PO (09:55)
[2025-08-28] MEDS: NEURONTIN 300 MG PO (09:55)
[2025-08-28] MEDS: REGLAN 5 MG PO ×3 (09:59→17:52)
[2025-08-28] MEDS: GLUCOPHAGE 500 MG PO ×2 (09:59→17:52)
[2025-08-28] MEDS: GLUCOTROL 5 MG PO ×2 (09:59→17:52)
[2025-08-28] MEDS: NOVOLOG FLEXPEN-MODERATE RESISTANCE 3 UNITS SC ×2 (10:08→13:44)
[2025-08-28 11:45] LABS: Glucose - Point of Care 209 mg/dl (70-99)
[2025-08-28 12:33] VITALS: PULSE 103
--- NOTE | 2025-08-28 14:19 | PTCARENOTE ---
pt resting most of shift but awakens to voice. PT [id number] can make needs known. PT ambulates independently in and out of room and steady. PT walking in hallway without any difiiculty. IVF dc as per MD order. pt denies any pain at this time. No
coughing no SOB, no GRISSOM or sputum noted. abd very large soft nt + tympany on percussion + Flatus + BM. pt voids in bathroom. pt with call mccormack in hand
--- NOTE | 2025-08-28 14:42 | W.PN.HOSP.TC ---
Addendum entered and electronically signed by Mariely Simpson MD 08/28/25 14:56:
I saw and evaluated the patient independently. I reviewed and discussed the resident�s note and agree with findings and plan as documented by Dr. Deshpande.
GENERAL: well developed, well nourished, obese male in no apparent distress
HEENT: NC/AT
HEART: regular rate and rhythm, +S1, +S2
LUNGS : rhonchi right base
ABDOM: soft, nontender, nondistended, + bowel sounds
EXT: no cyanosis, clubbing, or edema
Right lower lobe pneumonia suspected to be community acquired --finish levaquin treatment--blood cultures neg, sputum culture with normal sherin- Negative covid, flu, legionella, and streptococcal antigen on urine testing- As needed acapella, nebs,
antitussives and antiemetics
Elevated total bilirubin with normal LFT's most likely due to hepatic steatosis-- Direct bilirubin is 1.8- Patient is obese. Patient has no icteric sclera, abdominal pain or discomfort on physical exam- Abdominal CT shows severe diffuse hepatic
steatosis- Encouraged exercise and a diabetic diet
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
GERD- continue esomeprazole
Pseudohyponatremia- CORRECTED level is 137, in the normal range
DVT proph-- Lovenox
Full code
ok for d/c
Original Note:
Today's Communication/Plan
-
- discharge
Assessment / Plan
Assessment / Plan
Right lower lobe pneumonia suspected to be community acquired pneumonia:
- confirmed on xray of the lungs which shows a right lower lobe consolidation. patient had symptoms of chills and cough with a fever of 100.6 on admission.
- Blood cultures negative and Sputum culture pending
- Negative covid, flu, legionella, and streptococcal antigen on urine testing
- transition IV Levaquin (h/o reaction to ceftin/cephalosporin) to oral levaquin on discharge
- As needed acapella, nebs, antitussives and antiemetics
- continue on 1800 olivia diabetic diet on discharge
- Will dc fluids as patient is euvolemic
Reactive leucocytosis secondary to right lower lobe pneumonia:
- 13.8 today from 16.5 and trending down
- there is no fever today or chills.
- CBC and cmp with pcp in 1 week
Elevated total bilirubin with normal LFT's most likely due to hepatic steatosis:
- Direct bilirubin is 1.8
- Patient is obese. Patient has no icteric sclera, abdominal pain or discomfort on physical exam.
- Abdominal CT shows severe diffuse hepatic steatosis
- Encouraged exercise and a diabetic diet
Insulin dependant diabetes mellitus
Suspected gastroparesis
Diabetic peripheral neuropathy b/l lower extremities:
- Patient does not like to take insulin as he is afraid of the subcutaneous injections and feels like oral meds do not work
- His hba1 is 13.2 and glucose is 409, UA shows 4+ glucose and 2+ ketones in urine, so blood sugar is uncontrolled due to lack of medication
- sliding scale insulin for now
- Diabetes nurse management is consulted and recc a mix of insulin glargine 15 units and Metformin BID with glipizide BID. He will be discharged on these medications. Glucose on discharge is 207.
- ordered low dose 5 mg Reglan for patients suspected belching due to gastroparesis. Has had belching for 1 year not relieved on taking a PPI. continue on discharge until seen by PCP
- continue gabapentin 300 mg po tid for the neuropathic pain on discharge
GERD:
- continue esomeprazoleon discharge
Hyponatremia:
- CORRECTED level is 137, in the normal range. This is not true hyponatremia.
DVT ppx: Lovenox
Full code
Anticipated Discharge: Today
Subjective/Interval History
-
Date of Service: August 28, 2025
No acute overnight events.
On ros he is positive for a dry cough ,chest congestion, and belching. No fever, chills, nausea, abdominal pain, dry mouth, weight loss, excessive urination, headache, visual changes, shortness of breath, dyspnea.
Objective Data
-
Labs:
Laboratory Results
08/28/25
07:25
WBC 13.8 H
Hgb 12.7 L
Hct 38.3 L
Plt Count 232
Sodium 131 L
Potassium 3.9
Chloride 99
Carbon Dioxide 29
BUN 10
Creatinine 0.7
Glucose 207 H
Calcium 8.0 L
Total Bilirubin 1.3
AST 16 L
ALT 18
Alkaline Phosphatase 99
Vital Signs:
Vital Signs
Temp Pulse Resp BP Pulse Ox
98.4 F 105 18 163/93 95
08/28/25 07:22 08/28/25 07:22 08/28/25 07:22 08/28/25 07:22 08/28/25 07:22
Review of Systems
-
History Source: Patient
All other systems: Reviewed and negative
Physical Exam
-
General: Well Developed and Well Nourished
Respiratory: Crackles (right lower lung base)
Cardiac: Regular Rhythm and S1/S2
GI: Soft, Nontender, Nondistended and Normal Bowel Sounds
Musculoskeletal: No Clubbing, No Cyanosis and No Edema
Skin: Warm and Dry
Neuro: AO x 3
Psych: Calm
Data Reviewed
-
Labs: Labs Reviewed by me and Discussed with Physician
--- NOTE | 2025-08-28 15:06 | W.DCSUMMARY ---
Addendum entered and electronically signed by Mariely Simpson MD 08/28/25 15:56:
Read, reviewed, and agree. See same day progress note for additional details. Time spent coordinating care, DC planning, review of DC plan of care with resident, transition of care, review of records in EMR, med rec, consults, notes, d/w
consultants, nursing, family, and CM = 33 minutes
Original Note:
Discharge Summary
Discharge Data
Date of Admission: 08/27/25
Date of Discharge: 08/28/25
-
Pending Results: Yes (Sputum cultures)
Hospital Course
Discharging Physician : Dr. Mariely Simpson and Dr. Panda Deshpande
Disposition : Home
Primary care physician : [facility]
Principal Discharge diagnosis : Right lower lobe pneumonia, elevated total bilirubin with normal LFTs, insulin-dependent diabetes mellitus, suspected gastroparesis
Chronic Discharge diagnosis : GERD, diabetic peripheral neuropathy bilaterally lower extremities
Hospital Course : Patient is a 65-year-old with past medical history significant for [id number] diabetes, hypertension, GERD, presents to the emergency department for evaluation of cough that has been going on for some time.
Problem #1: Right lower lobe pneumonia
- Patient presented on 08/26/2025 to the emergency department for a dry cough, difficulty in breathing, chest congestion that he could not clear unless he tried to belch. In the emergency department patient was febrile 101.5, blood pressure was
150/72, pulse was 96, saturating 94% on room air. Labs were a white count of 16.5, normal hemoglobin, normal platelets. CMP showed a sodium of 129, creatinine normal. Blood glucose was 409. EKG showed a normal sinus rhythm with a rate of 98. CT
of the chest abdomen pelvis showed a right lower lobe pneumonia, severe diffuse hepatic steatosis and mild hepatomegaly. Blood cultures negative. Sputum cultures are pending. Negative COVID and influenza testing. Urine Legionella and
streptococcal antigen testing negative. IV Levaquin was started for 1 day on 08/27/2025 and patient was discharged on oral Levaquin 750 to be continued for 4 extra days totaling 5 days total. Patient was placed on as needed DuoNebs, Acapella,
antiemetics, incentive spirometry. On discharge, patient is stable and afebrile. WBC count on discharge is 13.8, hemoglobin is 12.7, sodium is 131, potassium is normal, creatinine is 0.7, glucose is 207. CMP and CBC in 1 week with PCP.
Problem #2:
Insulin-dependent diabetes mellitus
Suspected gastroparesis
Diabetic peripheral neuropathy bilateral lower extremities
- His hemoglobin A1c during course of hospital stay is 13.2 and glucose on admission is 409. His urine analysis showed 4+ glucose and 2+ ketones in the urine so blood sugars uncontrolled due to lack of medication. Patient does not like to take
insulin as he is afraid of the subcutaneous injections and feels like oral meds do not work as he previously tried metformin. Initially he was placed on sliding scale insulin and then diabetes nurse management was consulted. They started him on a
mix of insulin glargine 15 units, metformin 500 mg twice daily, glipizide 4 mg twice daily. On discharge his blood glucose level was 207. Diabetes nurse practitioner will show patient how to use the lancets and strips provided on his discharge
information as well as go over subcutaneous insulin injection instructions. We also suspected gastroparesis as he said that he had belching for 1 year that was unrelieved on NSAIDs. Ordered Reglan 5 mg to be taken 30 minutes before meal once daily
in the hospital and continue that same medication on discharge. Patient will need a workup for diabetic gastroparesis as his diabetes was uncontrolled for many years. Also started patient on gabapentin 300 mg 3 times daily for his diabetic
peripheral neuropathy of the bilateral lower extremities to be continued on discharge.
Problem #3: Elevated total bilirubin with normal LFTs:
- Direct bilirubin is 1.8 and LFTs are within normal range, patient is obese. There is no icteric sclera, abdominal pain or discomfort on physical exam. Abdominal CT shows severe diffuse hepatic steatosis. Encourage exercise and diabetic diet.
Please follow-up with PCP for further assistance in this matter in less than 1 week.
Problem #4: Hyponatremia
- Corrected level on admission taking into consideration glucose levels was actually 137 so this is not true hyponatremia. His corrected sodium is 134 and normal on discharge.
Problem #5: GERD
-Continue home Nexium on discharge
Important imaging findings :
CT chest 08/26/2025
-IMPRESSION:
1. SEVERE RIGHT LOWER LOBE PNEUMONIA.
2. Severe calcific atherosclerotic plaque in the coronary arteries.
3. Severe diffuse hepatic steatosis.
4. Mild splenomegaly.
Abdominal/pelvis CT on 08/26/2025
IMPRESSION:
1. LARGE RIGHT LOWER LOBE PNEUMONIA which appears to contain a central 1.5 cm pulmonary abscess.
2. SEVERE DIFFUSE HEPATIC STEATOSIS.
3. Moderate hepatosplenomegaly.
4. Mild ely hepatis and portacaval lymphadenopathy.
5. Severe calcific atherosclerotic plaque in the abdominal aorta.
6. Mild chronic bilateral renal disease.
7. Moderate diffuse thickening and trabeculation of the urinary bladder wall. Diagnostic possibilities are (1) chronic cystitis, (2) chronic urinary bladder outlet obstruction, or (3) urothelial carcinoma.
8. Large fat-containing left indirect inguinal hernia.
9. Grade 1 anterolisthesis of L4 on L5 secondary to severe facet joint arthrosis.
Procedure findings :
Discharge Plan
-
Patient Disposition: Home (Routine Discharge)
Discharge Diagnosis/Procedures: Right lower lobe pneumonia, elevated total bilirubin normal LFTs, insulin-dependent diabetes mellitus, gastroparesis suspected, peripheral neuropathy bilaterally lower extremities, GERD, hyponatremia
Condition: Fair
Diet: Diabetic, Carb Controlled
Activity: No restrictions
Driving Restrictions: As prior to admission
Bathing Restrictions: None
Blood Work: CBC and CMP in 1 week with PCP
Others Tests: HbA1c in 3 months. Most recent was 13.2.
Workup for suspected gastroparesis outpatient.
Referrals:
[facility] [Outside] - in less than 1 week
Additional Discharge Medication Instructions: Diabetes nurse have placed order for lancets and strips.
Take metformin 2 tablets once at 8 am and once at 5 pm every day
Take Glipizide 5 mg once at 8 am and once at 5 pm every day
You still have 4 days of the levofloxacin antibiotic. Its a 750 mg tablet that you take once daily at 10 pm.
Metoclopramide 5 mg tablet 30 minutes before meals.
Gabapentin 300 mg twice a day spaced 12 hours apart
Prescriptions:
New
(DME) CoskataTouch Verio test strips Strip
Qty: 200 0RF
Rx Instructions:
Pt Testing 4 times a day
(DME) pen needle, diabetic [Susan 2nd Gen Pen Needle] 32 gauge x 32' Needle
Qty: 200 0RF
Rx Instructions:
Pt taking insulin 4 times a day
(DME) lancets [OneTouch Delica Plus Lancet] 30 gauge Misc
Qty: 200 0RF
Rx Instructions:
Pt Testing 4 times a day
metformin 500 mg Tablet
500 mg PO BID@0800,1700 Qty: 60 0RF
gabapentin 300 mg Capsule
300 mg PO BID Qty: 30 0RF
glipizide 5 mg Tablet
5 mg PO BID@0800,1700 Qty: 30 0RF
guaifenesin 600 mg Tablet Extended Release 12hr
600 mg PO Q12 Qty: 30 0RF
Insulin Glargine Lantus [Lantus] 15 UNITS
Subcutaneous Insulin Syringe [Syringe-Insulin] 0 UNIT
As Directed mls/hr SC HS
Reason for use: Diabetes
Ordered By: Panda Deshpande MD, Resident
Last Taken: 08/27/25 21:29 0.15 mls
metoclopramide HCl 5 mg Tablet
5 mg PO AC Qty: 15 0RF
levofloxacin 750 mg Tablet
750 mg PO DAILY@2200 Qty: 4 0RF
Continued
esomeprazole magnesium [Nexium] 20 mg Capsule,Delayed Release(Dr/Ec)
20 mg PO DAILYPRN PRN (Reason: gerd)
Discontinued
pregabalin [Lyrica] 150 mg Capsule
150 mg PO QPM
pregabalin [Lyrica] 150 mg Capsule
300 mg PO DAILY
Discharge Orders:
Discharge Patient (As Directed); Ordered 08/28/25
Ordered By: Panda Deshpande
Discharge Date and Time
Print Language: MALIAN
[2025-08-28 15:21] VITALS: BP 142/62
[2025-08-28 15:38] VITALS: PULSE 103; O2SAT 94
--- NOTE | 2025-08-28 15:42 | PTOTSP ---
Patient independent with transfers, ambulation and functional mobility. Do not anticipate skilled needs at discharge and will discharge from caseload at this time. If needs change, please re-consult.
--- NOTE | 2025-08-28 15:58 | CM ---
patient seen at bedside
discharge to home - IMM explained & signed. In chart
Information given to patient on residency clinic - patient stated he will call and set up appointment
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
PT/OT eval - no needs
PLAN: Home no needs
drove self
[2025-08-28 16:59] LABS: Glucose - Point of Care 179 mg/dl (70-99)
[2025-08-28] MEDS: NOVOLOG FLEXPEN-MODERATE RESISTANCE 2 UNITS SC (17:52)
== END 2025-08-28 18:09 | disposition home or self-care (01) | DRG 194 ==
LOC: 3 WEST ACU 02:46
PROVIDERS: Emergency Medicine; ADMITTING PHYSICIAN Internal Medicine; ATTENDING PHYSICIAN Internal Medicine; EMERGENCY PHYSICIAN Student in an Organized Health Care Education/Training Program; FAMILY PHYSICIAN Family Medicine
DX: J18.9 Pneumonia, unspecified organism (principal); E87.1 Hypo-osmolality and hyponatremia; Z87.891 Personal history of nicotine dependence; K21.9 Gastro-esophageal reflux disease without esophagitis; E11.43 Type 2 diabetes mellitus with diabetic autonomic (poly)neuropathy; K31.84 Gastroparesis; Z11.52 Encounter for screening for COVID-19; E11.42 Type 2 diabetes mellitus with diabetic polyneuropathy; E66.9 Obesity, unspecified; Z68.39 Body mass index [BMI] 39.0-39.9, adult; Z79.899 Other long term (current) drug therapy
CPT/HCPCS: 71250; 74177; 80048; 80053; 81003; 81015; 82962; 83036; 83605; 83735; 85025; 85027; 87040; 87070; 87205; 87449; 87502; 87811; 87899; 93005; 96361; 96365; 97162; 97165; 99285; Q9967